=== PATIENT | female | born 2000 | race Caucasian/White ===

== ENCOUNTER 2022-11-22 19:51 | Emergency (ER) | payer OTHER, SELFPAY ==
[2022-11-22 19:52] VITALS: BP 143/97; PULSE 90; RESP 15; TEMP 37; O2SAT 100; BMI 33.7
[2022-11-22 21:02] LABS: Internal QC Validated? YES +Cl - CLEAR BKGD; Pregnancy, Serum, hCG Quali. NEGATIVE Negative
[2022-11-22 21:03] LABS: Absolute Lymphocyte Count 2.56 X10^3/uL (0.83-4.51); Absolute Neutrophil Count 5.3 X10^3/uL (2.0-7.7); Basophil# 0.05 X10^3/uL; Basophil% 0.6 % (0-1); Eosinophils% 1.1 % (0-5); Hematocrit 44.3 % (37-47); Hemoglobin 15.2 g/dL (12.0-15.0); Lymphocyte # 2.56 X10^3/ul (0.83-4.51); Lymphocyte % 29.4 % (19-41); Mean Corp Hgb Conc 34.3 g/dL (32-36); Mean Corpuscular Hgb 27.3 pg (27.0-32.0); Mean Corpuscular Volume 79.7 fL (81-99); Mean Platelet Vol. 9.6 fl (6.2-12.0); Monocyte# 0.71 X10^3/uL; Monocyte% 8.1 % (0-10); NRBC Flagged by Analyzer 0 % (0-5); Neutrophil # 5.28 X10^3/uL (2.7-7.7); Neutrophil % 60.6 % (47-70); Platelet Count 464 K/mm3 (150-450); RBC Distribution Width CV 12.9 % (11.6-14.6); RBC Distribution Width SD 36.5 fl (35.1-43.9); Red Blood Count 5.56 M/mm3 (4.2-5.4); White Blood Count 8.7 K/mm3 (4.4-11.0)
--- NOTE | 2022-11-22 21:04 | EX.ED.DYSGE1 ---
HPI History of Present Illness Chief Complaint: Abd Pain Informant: patient and spouse/S.O. Narrative Narrative: 22-year-old female presenting to the emergency room with chief complaint of abdominal pain. Patient states this morning she woke with intermittent diffuse abdominal pain. Symptoms come and go about every 5 minutes. She notes associated nausea as well as diarrhea. She states it hurts to walk. No fevers. Denies any prior abdominal surgeries. She denies any medications but does note that she is on control that is implanted in my arm. No reported fevers. She has not had any home treatment for this. She has concerns of appendicitis. She states her symptoms have gotten worse. PFSH PFSH Medical History no medical history no medical history Allergy/AdvReac Type Severity Reaction Status Date / Time No Known Allergies Allergy Verified 11/22/22 19:57 Surgical History no surgical history no surgical history Social History Smoking Status: Never smoker ROS ROS ED Constitutional Constitutional ED: Denies chills, fever(s) or weight loss Eyes Eyes: Denies change in vision or diplopia ENT ENT ED: Denies ear pain, rhinorrhea or sore throat Cardiovascular Cardiovascular: Denies chest pain, orthopnea, palpitations or racing heartbeat Respiratory/Chest Respiratory/Chest: Denies cough, dyspnea or orthopnea Gastrointestinal Gastrointestinal: Reports abdominal pain, diarrhea and nausea; Denies vomiting Genitourinary Genitourinary ED: Denies dysuria, hematuria or urinary frequency Musculoskeletal Musculoskeletal: Denies arthralgias, back pain or myalgias Integumentary Denies abscess or rash Neurologic Neurologic: Denies headache(s) or weakness Psychiatric Psychiatric: Denies anxiety, depression, suicidal ideation or suicidal thoughts Endocrine Endocrinology: Denies polydipsia, polyphagia or polyuria Allergic/Immunologic Allergic/Immunologic ED: Denies mouth swelling, tongue swelling or urticaria EXAM Physical Exam Const Vital Signs: 11/22/22 19:52 Temperature 98.6 F Temperature Source Temporal Pulse Rate 90 Respiratory Rate 15 Blood Pressure 143/97 H Blood Pressure Mean 112 Pulse Ox 100 Oxygen Delivery Method Room Air Positive well nourished, well developed and obese General Appearance ED: well developed Nutritional Appearance: obese HEENT Reports normocephalic, head/scalp atraumatic and moist mucous membranes Eyes PERRL and EOMs intact bilaterally Neck no lymphadenopathy, supple and no JVD Resp normal respiratory effort and clear to auscultation bilaterally Cardio regular rate, regular rhythm and no murmurs GI Inspection: Negative for abdominal distention Auscultation: normoactive bowel sounds Palpation: soft, tender and guarding; Negative for rebound tenderness present Back/Spine no CVA tenderness and normal ROM Extremity normal to inspection General Extremety ED: Negative for edema General Extremity: Negative for edema Neuro oriented x3 and CN's II-XII intact bilaterally Sensorium / Orientation: alert Motor Exam: strength 5/5 throughout Psych mental status grossly normal Mood & Affect: Negative for depressed or tearful Skin no rashes or lesions noted and no wounds MDM MDM MDM Narrative Medical decision making narrative: Patient's white count is 8.7 hemoglobin 15.2. Lipase and CMP is negative for canal negative fraction. Not . CT of the pelvis was negative. Due to the reported decreased oral intake today she received a liter of fluids and due to her nausea she received Zofran and due to her pain which she reports is severe she was given morphine. Upon hearing results she asked if she can eat and I informed her I would start off light with mostly fluids given the fact that she most likely has a viral stomach illness and she began to eat beef jerky. At this point patient will be discharged home would recommend Imodium Tylenol return if worsening or concerns Lab Data Attestation: I reviewed the patient's lab results. Labs: Laboratory Results - last 24 hr 11/22/22 11/22/22 20:30 20:45 WBC 8.7 RBC 5.56 H Hgb 15.2 H Hct 44.3 MCV 79.7 L MCH 27.3 MCHC 34.3 RDW Std Deviation 36.5 RDW Coeff of [place] 12.9 Plt Count 464 H MPV 9.6 Immature Gran % (Auto) 0.200 Neut % (Auto) 60.6 Lymph % (Auto) 29.4 Early % (Auto) 8.1 Eos % (Auto) 1.1 Baso % (Auto) 0.6 Absolute Neuts (auto) 5.3 Absolute Lymphs (auto) 2.56 Nucleated RBC % 0 Sodium 140 Potassium 3.5 Chloride 107 Carbon Dioxide 28.0 Anion Gap 5 BUN 8 Creatinine 0.91 Estim Creat Clear Calc 88.74 Est GFR (MDRD) Af Amer 101 Est GFR (MDRD) Non-Af 84 BUN/Creatinine Ratio 8.8 L Glucose 76 Calcium 9.1 Total Bilirubin 0.30 AST 14 L ALT 26 Alkaline Phosphatase 61 Total Protein 7.8 Albumin 3.9 Globulin 3.9 Albumin/Globulin Ratio 1.0 Lipase 25 Serum , Qual NEGATIVE Urine Color Yellow Urine Clarity Clear Urine pH 6.5 Ur Specific [place] 1.015 Urine Protein Negative Urine Glucose (UA) Normal Urine Ketones Negative Urine Occult Blood Negative Urine Nitrite Negative Urine Bilirubin Negative Urine Urobilinogen Normal Ur Leukocyte Esterase Negative Urine RBC 0 SEEN Urine WBC 0 SEEN Ur Squamous Epith Cells 0 SEEN Urine Bacteria 0 SEEN Urine Mucus 0 SEEN Radiography Diagnostic Testing: Clinical Impression(s) from Imaging Studies Abdomen/Pelvis CT 11/22/22 21:40 IMPRESSION: No definite acute or significant abnormality seen. Electronically Signed: Matteo Tapia MD at 22:14 EDT , Discharge Plan Triage Chief Complaint: Abd Pain ED Provider: Carlos Enrique Rondon Dx/Rx/DC Orders Clinical Impression: Abdominal pain, acute, Diarrhea, Nausea Instructions: Abdominal Pain, ED Gastroenteritis, Viral (Adult) Primary Care Provider: Care Physician,No Primary Referrals: Care Physician,No Primary [Primary Care Provider] - Activity Restrictions/Additional Instructions: If persistent or worsening symptoms in the next 24 to 48 hours please return to the emergency department I would recommend slowly advancing your diet. Imodium for diarrhea. Disposition Disposition: Home, Self Care
[2022-11-22 21:08] LABS: Bacteria 0 SEEN /hpf (None Seen); Mucous, Urine 0 SEEN /hpf (<or=2+); Red Blood Cells-Urine 0 SEEN /hpf (0-5); Squamous Epithelial Cells - UA 0 SEEN /hpf (5-10); White Blood Cells 0 SEEN /hpf (0-5)
[2022-11-22 21:11] LABS: Color, Urine Yellow (Yellow); Glucose, Dipstick Normal (Normal); Ketone-Dipstick Negative (Negative); Leukocyte Esterase-Dipstick Negative /ul (Negative); Nitrite-Dipstick Negative (Negative); Occult Blood-Urine Negative /ul (Negative); Protein-Dipstick Negative (Negative); Specific Gravity, Urine 1.015 (1.002-1.030); Urine Bilirubin Dipstick Negative (Negative); Urine Clarity Clear (Clear); Urine Urobilinogen Normal (Normal); Urine pH 6.5 (5.0 - 8.0)
[2022-11-22 21:11] LABS: AST(SGOT) 14 U/L (15-37); Alanine Aminotransfer ALT/SGPT 26 U/L (13-56); Albumin, Serum 3.9 g/dL (3.2-5.0); Alkaline Phosphatase 61 U/L (45-117); Anion Gap 5 (5-15); BUN 8 mg/dL (7-18); BUN/Creat Ratio 8.8 RATIO (10-20); Calcium,Total 9.1 mg/dL (8.5-10.1); Chloride 107 mmol/L (98-107); Creatinine, Serum 0.91 mg/dL (0.55-1.02); EST Glomerular Filtration Rate 84 mL/min (>60); Est Glom Filt Rate - Afr Amer 101 mL/min (>60); Estimated Creatinine Clearance 88.74 ml/min; Globulin 3.9 g/dL (2.2-4.2); Glucose 76 mg/dL (74-106); Potassium 3.5 mmol/L (3.5-5.1); Protein, Total 7.8 g/dL (6.4-8.2); Sodium Level 140 mmol/L (136-145)
[2022-11-22] MEDS: Ondansetron 4 MG/2 ML Vial IV (21:28)
[2022-11-22] MEDS: 0.9% Normal Saline (1000mL) 1,000 ML 1000 ML IV (21:28)
[2022-11-22] MEDS: Morphine 4 MG/ML Syringe IV (21:28)
[2022-11-22 21:29] LABS: Lipase 25 U/L (13-75)
--- NOTE | 2022-11-22 21:40 | CT_ITS ---
STUDY: CT ABDOMEN AND PELVIS WITH CONTRAST REASON FOR EXAM: Female, 22 years old. abdominal pain RADIATION DOSAGE (If Supplied By Facility): CTDIvol = ( 17.69 ) mGy, DLP = ( 1237.67 ) mGycm TECHNIQUE: Transaxial images were obtained from the dome of the diaphragm to the symphysis pubis without oral contrast. IV 100mL Isovue-370 was administered. Sagittal and coronal images were reconstructed. Individualized dose optimization techniques were used for this CT. COMPARISON: None. FINDINGS: The visualized lung bases are unremarkable. The visualized portions of the heart are within normal limits. Normal liver. Normal gallbladder and extrahepatic biliary system. Normal spleen. Normal pancreas. Normal bilateral adrenal glands. Normal right kidney. Normal left kidney. Normal visualized stomach. Normal small intestine. Normal colon. The appendix is visualized and appears normal. Normal abdominal aorta. Normal inferior vena cava. Normal retroperitoneum. Normal urinary bladder. Normal visualized uterus. Normal abdominal wall. Normal osseous structures. CT/Abdomen/Pelvis W IV Cont ONLY IMPRESSION: No definite acute or significant abnormality seen. Electronically Signed: Matteo Tapia MD at 22:14 EDT ,
== END 2022-11-22 23:10 | disposition home or self-care (01) ==
PROVIDERS: Emergency Provider Emergency Medicine; Visit Provider Emergency Medicine
DX: R10.9 Unspecified abdominal pain (principal); R19.7 Diarrhea, unspecified; R11.0 Nausea; E66.9 Obesity, unspecified
CPT/HCPCS: 74177; 80053; 81001; 83690; 84703; 85025; 96361; 96374; 96375; 99283; J7030; Q9967; A4216; J2405

== ENCOUNTER 2023-02-12 13:03 | Emergency (ER) | payer OTHER, SELFPAY ==
[2023-02-12 13:05] VITALS: BP 133/89; PULSE 85; RESP 16; TEMP 36; O2SAT 100; BMI 35.0
--- NOTE | 2023-02-12 13:24 | RAD_ITS ---
STUDY: X-RAY - LEFT HAND REASON FOR EXAM: Female, 22 years old. Pain. TECHNIQUE: 3 view(s) of the hand. COMPARISON: None. FINDINGS: There is no evidence of fracture or dislocation. There are no significant degenerative changes. There are no radiodense foreign bodies. RAD/Hand Min 3 Views IMPRESSION: No fracture or dislocation. Electronically Signed: Abhijeet Beasley MD at 14:13 EST ,
--- NOTE | 2023-02-12 13:24 | RAD_ITS ---
STUDY: X-RAY - LEFT WRIST REASON FOR EXAM: Female, 22 years old. Trauma TECHNIQUE: 3 view(s) of the wrist were obtained. COMPARISON: None. FINDINGS: There is no evidence of fracture or dislocation. There are no significant degenerative changes. There are no radiodense foreign bodies. RAD/Wrist min 3 Views IMPRESSION: No fracture or dislocation. Electronically Signed: Abhijeet Beasley MD at 14:13 EST ,
--- NOTE | 2023-02-12 13:37 | EX.ED.DYSGE1 ---
HPI <SALENA Layne - Last Filed: 02/12/23 14:30> History of Present Illness Chief Complaint: Bite Narrative Narrative: 22-year-old female states a neighbor's pitbull was attacking her dog and she tried to break it up. She was bit on the left hand and has pain and swelling. No open wounds. She is right-hand dominant. PFSH <SALENA Layne - Last Filed: 02/12/23 14:30> PFSH Home Medications sertraline 25 mg tablet mg 02/12/23 [History Last Taken Unknown] Allergy/AdvReac Type Severity Reaction Status Date / Time No Known Allergies Allergy Verified 11/22/22 19:57 Social History Smoking Status: Never smoker ROS <SALENA Layne - Last Filed: 02/12/23 14:30> ROS ED ROS Narrative Neuro: Negative for motor/sensory dysfunction. Skin: Negative for wound. Musc: Positive for left hand pain, trauma. EXAM <SALENA Layne - Last Filed: 02/12/23 14:30> Physical Exam Narrative Exam Narrative: CONST: Patient sitting in no acute distress. EYES: Normal inspection. NECK: Normal inspection. SKIN: Color normal, no rash, warm, dry, intact. EXTREMITIES: Normal appearance of the left upper extremity, minor tenderness over the dorsal hand and maximal tenderness over left second digit. Full range of motion of shoulder elbow wrist and hand, normal motor and sensory function in median radial ulnar distributions, 2+ radial pulse and brisk cap refill. NEURO: Oriented x4. PSYCH: Normal affect. Const Vital Signs: 02/12/23 13:05 Temperature 96.8 F L Temperature Source Temporal Pulse Rate 85 Respiratory Rate 16 Blood Pressure 133/89 H Blood Pressure Mean 103 Pulse Ox 100 Oxygen Delivery Method Room Air <Dr. Jose Troy, - Last Filed: 02/12/23 16:39> Physical Exam Const Vital Signs: 02/12/23 13:05 Temperature 96.8 F L Temperature Source Temporal Pulse Rate 85 Respiratory Rate 16 Blood Pressure 133/89 H Blood Pressure Mean 103 Pulse Ox 100 Oxygen Delivery Method Room Air MDM <SALENA Layne - Last Filed: 02/12/23 14:30> MDM MDM Narrative Medical decision making narrative: Patient was bit on the left hand by a dog. She has mild edema over the left index finger and ring finger. There is no break in the skin or open wounds. She has full range of motion and is neurovascularly intact. X-rays of the wrist and hand are negative for acute findings. She was treated with Motrin and counseled on symptomatic care at home. Since there are no open wounds she does not require tetanus or antibiotics. She was discharged in stable condition. Radiography Diagnostic Testing: Clinical Impression(s) from Imaging Studies Hand X-Ray 02/12/23 13:24 IMPRESSION: No fracture or dislocation. Electronically Signed: Abhijeet Beasley MD at 14:13 EST , Wrist X-Ray 02/12/23 13:24 IMPRESSION: No fracture or dislocation. Electronically Signed: Abhijeet Beasley MD at 14:13 EST , <Dr. Jose Troy, DO - Last Filed: 02/12/23 16:39> [facility] Radiography Diagnostic Testing: Clinical Impression(s) from Imaging Studies Hand X-Ray 02/12/23 13:24 IMPRESSION: No fracture or dislocation. Electronically Signed: Abhijeet Beasley MD at 14:13 EST , Wrist X-Ray 02/12/23 13:24 IMPRESSION: No fracture or dislocation. Electronically Signed: Abhijeet Beasley MD at 14:13 EST , Treatment and Re-Evaluation :: I have personally performed a face to face assessment of the patient and have reviewed the BORIS Note. I performed a substantive portion of the visit including all aspects of the following. My malone findings include: History: Patient presents with injury to her left hand that occurred today. Patient states she was trying to break up a fight between her dog and another dog. Patient states she was bit on the left index, middle, and ring fingers. Patient denies any bleeding. Patient denies any weakness but admits to some tingling in her fingers. Patient states her pain is worse with any movement. Patient describes her pain as burning. Exam: Vital signs are stable. Patient is afebrile. Patient is in no acute distress. Musculoskeletal exam reveals tenderness with mild edema over the proximal phalanx of the left index finger. There is also some mild edema over the left ring finger. There is no erythema or warmth. There is good range of motion. Sensation was intact to light touch in the radial, median, and ulnar areas. Strength is 5/5 in the radial, median, and ulnar areas. Radial pulses are equal bilaterally. Medical Decision Making: Differential diagnosis includes fracture, foreign body, and contusion. X-rays of the left hand will be obtained to assess for fracture and foreign body. X-rays of the left wrist will be obtained to assess for fracture and foreign body. X-rays of the left hand were obtained. There are 3 views. On my independent interpretation, there is no acute fracture or foreign body. Radiologist also interpreted the x-rays and agrees. X-rays of the left wrist were obtained. There are 3 views. On my independent interpretation, there is no acute fracture. There is no foreign body noted. Radiologist also interpreted the x-rays and agrees. Patient was advised of her findings. Patient was instructed to ice and elevate her left hand. Patient was instructed to take Tylenol or ibuprofen as needed for pain. Patient was instructed to follow-up with her primary care physician in 5 to 7 days. Patient understood and was agreeable with the plan. All questions were answered. Discharge Plan Triage Chief Complaint: Bite ED Midlevel Provider: Candice Lamb ED Provider: Jose Troy Dx/Rx/DC Orders Clinical Impression: Dog bite of left hand, Contusion of left hand Instructions: ED Dog Bite Prescriptions: No Action sertraline 25 mg tablet Patient Comments: TAKE 1 TABLET BY MOUTH EVERY DAY Primary Care Provider: Care Physician,No Primary Referrals: Care Physician,No Primary [Primary Care Provider] - Activity Restrictions/Additional Instructions: Rest, ice, and take Tylenol or ibuprofen as needed. Disposition Disposition: Home, Self Care Discharge Date/Time: 02/12/23 14:36
[2023-02-12] MEDS: Ibuprofen 600 MG Tablet PO (14:32)
== END 2023-02-12 14:36 | disposition home or self-care (01) ==
PROVIDERS: Emergency Provider Emergency Medicine; Visit Provider Emergency Medicine
DX: S61.452A Open bite of left hand, initial encounter (principal); S60.222A Contusion of left hand, initial encounter; W54.0XXA Bitten by dog, initial encounter
CPT/HCPCS: 73110; 73130; 99284

== ENCOUNTER → 2023-11-14 | Outpatient (CLI) | payer OTHER, SELFPAY ==
--- NOTE | 2023-11-14 16:09 | US_ITS ---
INDICATION: PAIN EXAMINATION: Ultrasound US Pelvis Non OB Complete With Transvaginal Imaging TECHNIQUE: Transabdominal and transvaginal pelvic ultrasound was performed. Grayscale, spectral waveform, and color flow Doppler evaluation of the adnexa. COMPARISON: None. FINDINGS: UTERUS: Retroverted. The uterus measures 6.6 cm in length.. There is no uterine mass. The endometrial stripe measures 8 mm in AP diameter which is within normal limits. IUD in place. RIGHT OVARY: Measures 5.1 x 4.2 x 4.2 cm. Non-enlarged, normal echogenicity. There is normal arterial inflow and venous outflow present in the right ovary. There is a 5 x 4 x 3.6 cm complex cystic structure in the right ovary which may represent a hemorrhagic cyst. LEFT OVARY: Measures 1.7 x 1.1 x 1.1 cm. Non-enlarged, normal echogenicity. There is normal arterial inflow and venous outflow present in the left ovary. FREE FLUID: None. US/Pelvic w/ Transvaginal IMPRESSION: Possible 5 cm hemorrhagic cyst in the right ovary. Recommend follow-up ultrasound in 6-12 weeks to document resolution. Electronically Signed: Jaron Hernandez MD at 17:09 EDT ,
== END | disposition home or self-care (01) ==
DX: R10.2 Pelvic and perineal pain (principal)
CPT/HCPCS: 76830; 76856